=== PATIENT | female | born 1965 | race Caucasian/White ===

== ENCOUNTER 2019-01-05 19:24 | Emergency (ER) | payer OTHER ==
[2019-01-05] MEDS ORDERED: Ibuprofen 200 MG TAB ONE (19:55)
[2019-01-05] MEDS ORDERED: Acetaminophen 325 MG TAB ONE (19:55)
--- NOTE | 2019-01-05 20:37 | RAD ---
LUMBAR SPINE THREE VIEWS: HISTORY: Back pain after tripping over a high-chair. TECHNIQUE: AP, lateral, and cone-down views of the lumbar spine obtained. FINDINGS: Three views of the lumbar spine demonstrate disk space height loss with endplate sclerotic changes at L4-L5. This is compatible with changes of spondylosis. No evidence of acute fracture is seen. IMPRESSION: 1. L4-L5 likely changes of spondylosis. 2. No acute fractures or bony lesions seen. POS: [facility]
--- NOTE | 2019-01-05 20:39 | RAD ---
LEFT KNEE FOUR VIEWS: HISTORY: The patient tripped over a high-chair, with left knee pain. TECHNIQUE: AP, lateral, and both oblique views of the left knee obtained. FINDINGS: Four views of the left knee demonstrate no evidence of left knee fractures, subluxations, or bony les ions. IMPRESSION: Normal four views left knee. POS: [facility]
--- NOTE | 2019-01-05 20:40 | RAD ---
RIGHT KNEE FOUR VIEWS: HISTORY: Right knee pain after tripping over a high-chair. TECHNIQUE: AP, lateral, and both oblique views of the right knee obtained. FINDINGS: Four views of the right knee demonstrate no evidence of right knee fractures, subluxations, or bony l esions. IMPRESSION: Normal four views right knee. POS: [facility]
== END 2019-01-05 21:00 | disposition home or self-care (01) ==
LOC: ERS 19:24
DX: S80.01XA Contusion of right knee, initial encounter (principal); M25.562 Pain in left knee; J44.9 Chronic obstructive pulmonary disease, unspecified; F31.9 Bipolar disorder, unspecified; F17.210 Nicotine dependence, cigarettes, uncomplicated; W19.XXXA Unspecified fall, initial encounter
CPT/HCPCS: 72100

== ENCOUNTER 2020-02-05 12:18 | Outpatient (CLI) | payer OTHER ==
--- NOTE | 2020-02-05 13:47 | MRI ---
EXAM: MRI Lumbar Spine WO Con PROVIDED CLINICAL HISTORY: Lumbar spondylosis COMPARISON: None FINDINGS: 5 lumbar vertebral bodies are demonstrated. Lumbar alignment appears normal. Vertebral body heights a ppear preserved. No focal concerning regional marrow signal abnormality apparent. Conus medullaris is normal in signal and terminates at an appropriate level. The visualized extraspinal soft tissues d emonstrate no significant abnormality. At L1-2, there is bilateral facet arthritis without significant central canal or foraminal narrowing apparent. At L2-3, there is bilateral facet arthritis without significant central canal or foraminal narrowing apparent. At L3-4, there is a broad-based disc bulge and bilateral facet arthritis. There is no significant steffen tral canal or foraminal narrowing apparent. At L4-5, there is disc space height loss and endplate degenerative change with a broad-based disc bul ge and bilateral facet arthritis. There is mild central canal stenosis. There is an annular tear involving the dorsal disc margin. There is mild right foraminal narrowing. There is moderate left for aminal narrowing. At L5-S1, there is endplate degenerative change and a broad-based disc bulge with bilateral facet art hritis. There is moderate bilateral foraminal narrowing. IMPRESSION: Lumbar disc and facet degenerative change as described.
== END 2020-02-05 12:19 | disposition home or self-care (01) ==
LOC: BICMRI 12:18
PROVIDERS: ATTEND Orthopaedic Surgery
DX: M47.816 Spondylosis without myelopathy or radiculopathy, lumbar region (principal); M51.36 Other intervertebral disc degeneration, lumbar region
CPT/HCPCS: 72148